=== PATIENT | male | born 1940 | race American Indian/Alaskan Native ===

== ENCOUNTER 2017-12-08 20:36 | Inpatient (IN) | payer MEDICARE, MEDICAID ==
[2017-12-08 20:41] VITALS: BMI 24.0
[2017-12-08 20:44] VITALS: O2SAT 96
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
[2017-12-08 21:40] LABS: BASO % 0.7 % (0.0-2.0); EOS # 0.3 K/uL (0.0-0.7); HEMOGLOBIN 13.9 g/dL (12.0-18.0); LYMPH % 34.4 % (20.0-40.0); MEAN CORPUSCULAR HEMOGLOBIN 26.3 pg (27.0-31.0); MEAN CORPUSCULAR HGB CONC 32.4 g/dL (33.0-37.0); MEAN PLATELET VOLUME 8.5 fl (7.2-11.7); MONO # 0.5 K/uL (0.0-0.8); MONO % 9.1 % (0.0-10.0); NEUT % 50.8 % (50.0-75.0); NRBC % 0.3 % (0.0-0.0); RBC 5.29 Mil/uL (4.40-5.90); RED CELL DISTRIBUTION WIDTH 26.8 % (11.5-14.5); WHITE BLOOD COUNT 5.9 K/uL (4.8-10.8)
[2017-12-08 21:50] LABS: ALBUMIN 4.3 g/dL (3.5-5.0); ALT/SGPT 28 U/L (21-72); AST/SGOT 20 U/L (17-59); BLOOD UREA NITROGEN 14 mg/dl (9-20); CALCIUM 9.9 mg/dL (8.4-10.2); GFR NON-AFRICAN AMERICAN 46
[2017-12-08 22:02] LABS: B-TYPE NATRIURETIC PEPTIDE 102 pg/ml (0-900)
[2017-12-08 23:27] LABS: SQUAMOUS EPITHIAL < 1 /hpf (0-5); URINE BACTERIA OCC (<OCC); URINE BILIRUBIN NEGATIVE (NEGATIVE); URINE BLOOD NEGATIVE (NEGATIVE); URINE CLARITY CLEAR (Clear); URINE COLOR YELLOW (YELLOW); URINE GLUCOSE (UA) NEG (Normal); URINE LEUKOCYTE ESTERASE TRACE Leu/uL (Negative); URINE PROTEIN NEGATIVE (NEGATIVE); URINE UROBILINOGEN 0.2-1.0 mg/dL (0.2-1.0)
[2017-12-08 23:31] LABS: BARBITURATES, UR NEGATIVE (NEGATIVE); BENZODIAZEPINES, UR NEGATIVE (NEGATIVE); OPIATES, UR NEGATIVE (NEGATIVE); PHENCYCLIDINE, UR NEGATIVE (NEGATIVE)
[2017-12-09] MEDS ORDERED: Magnesium Hydroxide Susp 30 ml UD PO PRN (01:24)
[2017-12-09] MEDS ORDERED: Bismuth Subsalicylate 262 mg/15 ml Sus (240 ml) PO PRN (01:24)
[2017-12-09] MEDS ORDERED: Alum-Mag Hydrox-Simethicone Susp (30 mL) PO PRN (01:24)
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
[2017-12-09 07:49] LABS: IRON 59 ug/dL (49-181)
[2017-12-09 07:58] LABS: % IRON SATURATION 20 % (20-55); TOTAL IRON BINDING CAPACITY 295 ug/dL (250-450)
[2017-12-09 07:59] LABS: T4 6.93 ug/dl (5.5-11.0)
[2017-12-09 08:17] LABS: FERRITIN 29.5 ng/Ml (17.9-464)
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
[2017-12-09] MEDS ORDERED: Insulin Regular 100 units/ml SC PRN (10:19)
[2017-12-09] MEDS ORDERED: Magnesium Hydroxide Susp 30 ml UD PO SCH (10:30)
[2017-12-09] MEDS ORDERED: SOLIFENACIN SUCCINATE 10 MG PO SCH (10:30)
[2017-12-09] MEDS ORDERED: DESTIN OINT TOP SCH (10:30)
--- NOTE | 2017-12-09 10:38 | CT ---
Date of service: 12/08/2017 PROCEDURE: CT HEAD WITHOUT CONTRAST. HISTORY: depression aggressive behavior h/o CVA COMPARISON: None available. TECHNIQUE: Axial computed tomography images were obtained through the head/brain without intravenous contrast. Radiation dose: Total exam DLP = 1159.81 mGy-cm. This CT exam was performed using one or more of the following dose reduction techniques: Automated exposure control, adjustment of the mA and/or kV according to patient size, and/or use of iterative reconstruction technique. . FINDINGS: HEMORRHAGE: No acute parenchymal, subarachnoid or extra-axial hemorrhage. BRAIN: Large chronic right-sided MCA territory infarct with a large area of cystic encephalomalacia and more peripheral and posteriorly at gliosis. The chronic appearing infarct changes are also seen in the right basal ganglia There is mild ex vacuo dilatation of the right lateral ventricle. There are also a moderate diffuse/confluent chronic periventricular white matter ischemic changes seen left cerebral hemisphere with a few chronic appearing left basal nuclei lacunar type infarcts . . No obvious parenchymal nor extra-axial mass or collection. Moderate to significant generalized volume loss not withstanding aforementioned encephalomalacia. Vascular calcifications both carotid siphons. VENTRICLES: As above. No obstructive Hydrocephalus. CALVARIUM: Calvarium intact PARANASAL SINUSES: Polypoid like mucosal thickening left maxillary sinus. . MASTOID AIR CELLS: Unremarkable as visualized. No inflammatory changes. OTHER FINDINGS: None. IMPRESSION: No acute intracranial hemorrhage. Large chronic right MCA territory infarct with ex vacuo dilatation of the right lateral ventricle. There also of chronic appearing right basal nuclei lacunar type infarcts. Moderate chronic white matter ischemic changes left cerebral hemisphere with a few chronic appearing left basal nuclei lacunar type infarcts
--- NOTE | 2017-12-09 12:09 | CARD ---
APPROVED REPORT Date of service: 12/08/2017 <Conclusion> Sinus rhythm with 1st degree AV block Left axis deviation Left ventricular hypertrophy with QRS widening Abnormal ECG
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
[2017-12-09] MEDS: Pantoprazole 40 mg EC Tab PO SCH (13:41)
[2017-12-09] MEDS: Lactobacillus Acidophilus 500 MU Cap PO SCH (17:09)
[2017-12-09 17:25] LABS: FOLATE 19.1 ng/mL
[2017-12-10] MEDS: Pantoprazole 40 mg EC Tab PO SCH (08:57)
[2017-12-10] MEDS: Lactobacillus Acidophilus 500 MU Cap PO SCH (08:57)
[2017-12-10] MEDS ORDERED: EPOETIN ALFA 10,000 UNIT/ML ML SC SCH (09:00)
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
[2017-12-11] MEDS: Pantoprazole 40 mg EC Tab PO SCH (08:49)
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
[2017-12-11] MEDS: Lactobacillus Acidophilus 500 MU Cap PO SCH (12:58)
[2017-12-12 06:03] VITALS: RESP 18
[2017-12-12] MEDS: Pantoprazole 40 mg EC Tab PO SCH (08:45)
[2017-12-12] MEDS: Lactobacillus Acidophilus 500 MU Cap PO SCH (08:48)
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
[2017-12-13] MEDS: Lactobacillus Acidophilus 500 MU Cap PO SCH (08:46)
[2017-12-13] MEDS: Pantoprazole 40 mg EC Tab PO SCH (08:50)
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
[2017-12-13] MEDS ORDERED: guaiFENesin 100 mg/5 ml Syrup UD PO PRN (21:13)
[2017-12-14 05:53] VITALS: BP 149/66; PULSE 69; TEMP 97.5
[2017-12-14] MEDS: Lactobacillus Acidophilus 500 MU Cap PO SCH (08:51)
[2017-12-14] MEDS: Pantoprazole 40 mg EC Tab PO SCH (08:55)
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
--- NOTE | 2017-12-14 11:38 | CP.PCM.CON ---
History of Present Illness - History of Present Illness History of Present Illness: PT is a 77 year old male referred to the chief underwriter for evaluation. On the DRS, pt scored an overall score of 106. Pt scored within normal limits on Conceptualization tasks. Pt's Attention, Memory, Initiation and Construction skills fell in the Deficient Range. Overall 106 Attention 27 deficient Construction 2 deficient Initiation 30 deficient Memory 13 deficient conceptualization 34 wnl thank you for this referral- cognitive deficits evident. Past Patient History - Infectious Disease Hx of Infectious Diseases: None - Tetanus Immunizations Tetanus Immunization: Unknown - Past Medical History & Family History Past Medical History?: Yes Past Family History: Reviewed and not pertinent - Past Social History Alcohol: None Drugs: Denies - CARDIAC Hx Hypertension: Yes - PULMONARY Hx Respiratory Disorders: No Hx Tuberculosis: No - NEUROLOGICAL Hx Parkinson's Disease: Yes (no tremors) Hx Seizures: Yes - HEENT Hx HEENT Problems: No - RENAL Hx Chronic Kidney Disease: No - ENDOCRINE/METABOLIC Hx Endocrine Disorders: Yes Hx Diabetes Mellitus Type 2: Yes - HEMATOLOGICAL/ONCOLOGICAL Hx Human Immunodeficiency Virus (HIV): No - INTEGUMENTARY Hx Dermatological Problems: No - MUSCULOSKELETAL/RHEUMATOLOGICAL Hx Falls: Yes Hx Fractures: Yes - GASTROINTESTINAL Hx Gastrointestinal Disorders: No - GENITOURINARY/GYNECOLOGICAL Hx Sexually Transmitted Disorders: No - PSYCHIATRIC Hx Depression: Yes Hx Substance Use: No - SURGICAL HISTORY Hx Surgeries: Yes Hx Joint Replacement: Yes - ANESTHESIA Hx Anesthesia: Yes Hx Anesthesia Reactions: No Hx Malignant Hyperthermia: No Meds Home Medications: Home Medication List Medication Instructions Recorded Confirmed Type Escitalopram [Lexapro] 10 mg PO DAILY tab 12/13/17 Rx Metoprolol Tartrate [Lopressor] 25 mg PO Q12 tab 12/13/17 Rx Mirtazapine [Remeron] 22.5 mg PO HS tab 12/13/17 Rx QUEtiapine [SEROquel] 50 mg PO DAILY@1700 tab 12/13/17 Rx QUEtiapine [Seroquel] 100 mg PO HS tab 12/13/17 Rx Allergies/Adverse Reactions: Allergies Allergy/AdvReac Type Severity Reaction Status Date / Time No Known Allergies Allergy Verified 12/08/17 20:41 - Medications Medications: Current Medications Acetaminophen (Tylenol 325mg Tab) 650 mg PO Q4 PRN PRN Reason: Pain, moderate (4-7) Amlodipine Besylate (Norvasc) 5 mg PO DAILY [facility] Last Admin: 12/14/17 08:54 Dose: 5 mg Aspirin (Ecotrin) [address] [facility] Last Admin: 12/14/17 08:54 Dose: 81 mg Escitalopram Oxalate (Lexapro) [address] [facility] Last Admin: 12/14/17 08:53 Dose: 10 mg Ferrous Sulfate (Feosol) [address] [facility] Last Admin: 12/14/17 08:52 Dose: 325 mg Guaifenesin (Robitussin) 100 mg PO Q6 PRN PRN Reason: Cough Last Admin: 12/13/17 22:40 Dose: 100 mg Lactobacillus Acidophilus (Bacid Acidophilus) [address] [facility] Last Admin: 12/14/17 08:51 Dose: 1 cap Lamotrigine (Lamictal) [address] [facility] Last Admin: 12/14/17 08:52 Dose: 150 mg Metoprolol Tartrate (Lopressor) [address] [facility] Last Admin: 12/14/17 08:53 Dose: 25 mg Mirtazapine (Remeron) 22.5 mg PO [facility] Last Admin: 12/13/17 21:12 Dose: 22.5 mg Pantoprazole Sodium (Protonix Ec Tab) [address] [facility] Last Admin: 12/14/17 08:55 Dose: 40 mg Petrolatum (Desitin Maximum Strength Topical 40% Oint) 1 [facility] Pravastatin Sodium (Pravachol) [address] [facility] Last Admin: 12/14/17 08:53 Dose: 10 mg Pravastatin Sodium (Pravachol) 10 mg PO [facility] Last Admin: 12/13/17 21:12 Dose: 10 mg Quetiapine Fumarate (Seroquel) [address] [facility] Last Admin: 12/13/17 21:13 Dose: 100 mg Quetiapine Fumarate (Seroquel) 50 mg PO DAILY@1700 [facility] Last Admin: 12/13/17 16:17 Dose: 50 mg Sennosides (Senokot Tab) 8.6 mg PO DAILY PRN PRN Reason: Constipation Last Admin: 12/13/17 08:59 Dose: 8.6 mg Tamsulosin HCl (Flomax) 0.[address] [facility] Last Admin: 12/14/17 08:54 Dose: 0.4 mg Results - Vital Signs Recent Vital Signs: Last Vital Signs Temp 97.5 F L 12/14/17 05:52 Pulse 69 12/14/17 08:54 Resp 18 12/14/17 05:52 BP 149/66 12/14/17 08:54 Pulse Ox 96 12/08/17 23:57 - Labs Result Diagrams: 12/08/17 21:36 12/08/17 21:36
[2017-12-14] MEDS ORDERED: cefTRIAXone (Rocephin) 1 gm Inj IM ONE (12:04)
== END 2017-12-14 14:42 | DRG 885 ==
LOC: H.ER 20:36 → H.ERHOLD 23:06 → H.STEP 12-09 01:20
PROVIDERS: ADMIT Psychiatry & Neurology Psychiatry; ATTEND Psychiatry & Neurology Psychiatry
PROC: GZHZZZZ Group Psychotherapy (ICD-10-PCS; principal; 2017-12-08)
PROC: GZ58ZZZ Individual Psychotherapy, Cognitive-Behavioral (ICD-10-PCS; 2017-12-08)
DX: F32.3 Major depressive disorder, single episode, severe with psychotic features (principal); F03.91 Unspecified dementia, unspecified severity, with behavioral disturbance; N39.0 Urinary tract infection, site not specified; I69.354 Hemiplegia and hemiparesis following cerebral infarction affecting left non-dominant side; G20 Parkinson's disease; B96.1 Klebsiella pneumoniae [K. pneumoniae] as the cause of diseases classified elsewhere; E11.9 Type 2 diabetes mellitus without complications; G40.909 Epilepsy, unspecified, not intractable, without status epilepticus; I10 Essential (primary) hypertension; I69.392 Facial weakness following cerebral infarction; Z87.891 Personal history of nicotine dependence; Z79.4 Long term (current) use of insulin; Z79.82 Long term (current) use of aspirin